=== PATIENT | female | born 1950 | race Caucasian/White ===

== ENCOUNTER 2018-04-07 06:40 | Day surgery (SDC) | payer MEDICARE, OTHER ==
[~2018-04-07] VITALS: Ht 165.1 cm; Wt 111.0 kg
[~2018-04-07 06:40] MED LIST: ALBU8.5H8 IH; AMIT25TA9 PO; BENZ-51 PO; CLOT15C; FLUT16H NASAL; FOLI1TAB15 PO; GABA-531 PO; GLIP5TAB11 PO; HYDR200T83 PO; LIDOP TD; MESA800T PO; METH2.5T6 PO; METH750T3 PO; MILN12.5 PO; MONT10TA21 PO; OXYC5CAP19 PO; PRED10 PO; PRED5TAB PO; SODIUM CHLORIDE 0.9% 1,000 ML IV ONE
[2018-04-07] MEDS ORDERED: EPINEPHrine 1:1,000 [1 MG/ML] AMP SQ ONE (06:41)
[2018-04-07] MEDS ORDERED: LIDOCAINE 2% 30 ML JELLY TP ONE (06:41)
[2018-04-07] MEDS ORDERED: ALBUTEROL SULFATE 2.5 MG/0.5 ML NEB SOLUTION NEB ONE (06:41)
[2018-04-07] MEDS ORDERED: BENZOCAINE 20% 50 MCG/SPRAY 57 GM TP ONE (06:41)
[2018-04-07] MEDS ORDERED: SODIUM CHLORIDE 0.9% 1,000 ML IV ONE (07:11)
[2018-04-07] MEDS ORDERED: CANA100T PO (07:37)
[2018-04-07] MEDS ORDERED: XALA2.5OS OU (07:37)
[2018-04-07] MEDS ORDERED: OXYC5TAB3 PO (07:37)
[2018-04-07] MEDS ORDERED: METF-960 PO (07:37)
[2018-04-07] MEDS ORDERED: CINN500C4 PO (07:37)
[2018-04-07] MEDS ORDERED: DIPH25 PO (07:37)
[2018-04-07] MEDS ORDERED: TURM1TAB PO (07:37)
[2018-04-07] MEDS ORDERED: OXYC10 PO (07:37)
[2018-04-07] MEDS ORDERED: BIOT5000 PO (07:37)
[2018-04-07] MEDS ORDERED: INSNOV SQ (07:37)
[2018-04-07] MEDS ORDERED: LORA10TA7 PO (07:37)
[2018-04-07] MEDS ORDERED: KELP150T PO (07:37)
[2018-04-07] MEDS ORDERED: INSU100V37 SQ (07:37)
[2018-04-07] MEDS ORDERED: ALBU8HFA PO (07:37)
[2018-04-07] MEDS ORDERED: MIDAZOLAM HCL 2 MG/2 ML VIAL ONE (08:01)
[2018-04-07] MEDS ORDERED: FentaNYL CITRATE-PF 100 MCG/2 ML VIAL ONE (08:01)
[2018-04-07] MEDS ORDERED: MethylPREDNISolone SOD SUCC 125 MG/2 ML VIAL IVP ONE (09:00)
[2018-04-07] MEDS ORDERED: MethylPREDNISolone SOD SUCC 125 MG/2 ML VIAL ONE (09:02)
[2018-04-07 10:48] LABS: GLUCOMETER DEV NAME(LOC) SDS.; GLUCOSE,POINT OF CARE 81 MG/DL (70-110)
[2018-04-07] MEDS ORDERED: OXYGEN THERAPY IH SCH (20:00)
== END 2018-04-07 10:20 | disposition home or self-care (01) ==
LOC: SURGERY 06:40
PROVIDERS: ATTEND Internal Medicine Critical Care Medicine
DX: J38.4 Edema of larynx (principal); B37.0 Candidal stomatitis; J84.111 Idiopathic interstitial pneumonia, not otherwise specified; J98.09 Other diseases of bronchus, not elsewhere classified; J98.8 Other specified respiratory disorders; F10.21 Alcohol dependence, in remission; J44.9 Chronic obstructive pulmonary disease, unspecified; M19.90 Unspecified osteoarthritis, unspecified site; B39.9 Histoplasmosis, unspecified; K50.90 Crohn's disease, unspecified, without complications; E11.9 Type 2 diabetes mellitus without complications; M54.30 Sciatica, unspecified side; F11.10 Opioid abuse, uncomplicated; Z87.39 Personal history of other diseases of the musculoskeletal system and connective tissue; Z87.442 Personal history of urinary calculi; Z91.81 History of falling; Z90.49 Acquired absence of other specified parts of digestive tract; Z79.891 Long term (current) use of opiate analgesic; Z79.84 Long term (current) use of oral hypoglycemic drugs; Z79.4 Long term (current) use of insulin; Z88.2 Allergy status to sulfonamides; Z88.1 Allergy status to other antibiotic agents; Z88.5 Allergy status to narcotic agent; Z88.6 Allergy status to analgesic agent; Z88.8 Allergy status to other drugs, medicaments and biological substances; Z79.899 Other long term (current) drug therapy; Z98.890 Other specified postprocedural states
CPT/HCPCS: 31623; 31624; 71045; 82962; 87015; 87070; 87205; 87206; 87220; 88108; 88312; J0171; J2250; J2930; J3010; J7030

== ENCOUNTER 2021-04-17 06:27 | Day surgery (SDC) | payer OTHER ==
[~2021-04-17] VITALS: Ht 167.6 cm; Wt 111.3 kg
[~2021-04-17 06:27] MED LIST changes: +ALBU8HFA PO; +AMIT25TA10 PO; -AMIT25TA9 PO; -BENZ-51 PO; +BIOT5000 PO; +CANA100T PO; +CINN500C4 PO; -CLOT15C; +CLOT15CR29; +DIPH25 PO; -GABA-531 PO; -GLIP5TAB11 PO; -HYDR200T83 PO; +INSNOV SQ; +INSU100V37 SQ; +KELP150T PO; -LIDOP TD; +LORA10TA7 PO; -MESA800T PO; +METF-1211 PO; +METH-812 PO; -METH2.5T6 PO; -METH750T3 PO; -MILN12.5 PO; +MONT-35 PO; -MONT10TA21 PO; +OXYC10TA59 PO; -OXYC5CAP19 PO; +OXYC5TAB3 PO; -PRED5TAB PO; -SODIUM CHLORIDE 0.9% 1,000 ML IV ONE; +TURM1TAB PO; +XALA2.5OS OU
[2021-04-17] MEDS ORDERED: LIDOCAINE 2% 30 ML JELLY TP ONE (06:28)
[2021-04-17] MEDS ORDERED: BENZOCAINE 20% 50 MCG/SPRAY 57 GM TP ONE (06:28)
[2021-04-17] MEDS ORDERED: ALBUTEROL SULFATE 2.5 MG/0.5 ML NEB SOLUTION NEB ONE (06:28)
[2021-04-17] MEDS ORDERED: SODIUM CHLORIDE 0.9% 1,000 ML IV ONE (06:45)
[2021-04-17 07:55] LABS: GLUCOMETER DEV NAME(LOC) SDS.; GLUCOSE,POINT OF CARE 130 MG/DL (70-110)
[2021-04-17 07:59] LABS: COVID AG,FIA SOURCE NASOPHARYNGEAL
[2021-04-17] MEDS ORDERED: FentaNYL CITRATE PF 100 MCG/2 ML VIAL ONE (08:08)
[2021-04-17] MEDS ORDERED: MIDAZOLAM HCL 5 MG/ML VIAL ONE (08:09)
[2021-04-17] MEDS ORDERED: MethylPREDNISolone SOD SUCC 125 MG/2 ML VIAL IVP ONE (09:00)
[2021-04-17] MEDS ORDERED: MethylPREDNISolone SOD SUCC 125 MG/2 ML VIAL ONE (09:49)
[2021-04-17] MEDS ORDERED: OXYGEN THERAPY IH SCH (20:00)
== END 2021-04-17 11:10 | disposition home or self-care (01) ==
LOC: SURGERY 06:27
PROVIDERS: ATTEND Internal Medicine Critical Care Medicine
DX: R05.3 Chronic cough (principal); R06.2 Wheezing; R49.0 Dysphonia; J44.9 Chronic obstructive pulmonary disease, unspecified; Z79.84 Long term (current) use of oral hypoglycemic drugs; Z79.899 Other long term (current) drug therapy
CPT/HCPCS: 31623; 31624; 71045; 82962; 87070; 87101; 87206; 87220; 87426; 88184; 88185; C9803; J2250; J2930; J3010; 87015; 88112; 88312; J7613

== ENCOUNTER 2024-09-14 06:29 | Day surgery (SDC) | payer OTHER ==
[~2024-09-14] VITALS: Ht 160 cm; Wt 102.7 kg
[~2024-09-14 06:29] MED LIST changes: -AMIT25TA10 PO; +AMIT25TA22 PO; +DIPH-1243 PO; -DIPH25 PO; -FLUT16H NASAL; +FLUT16SP NASAL; +PRED-729 PO; -PRED10 PO
[2024-09-14] MEDS ORDERED: LISI-893 PO (07:43)
[2024-09-14] MEDS ORDERED: BUDE10.26 IH (07:43)
[2024-09-14] MEDS ORDERED: AMLO-257 PO (07:43)
[2024-09-14] MEDS ORDERED: DOXY-354 PO (07:53)
[2024-09-14] MEDS ORDERED: FLUT12AE3 IH (07:53)
[2024-09-14] MEDS ORDERED: METO-296 PO (07:53)
[2024-09-14] MEDS ORDERED: FAMO20 PO (07:53)
[2024-09-14] MEDS ORDERED: FLUO15CR41 TP (07:53)
[2024-09-14] MEDS ORDERED: TRIA15CR49 TP (07:53)
[2024-09-14] MEDS ORDERED: MIDAZOLAM HCL 2 MG/2 ML VIAL ONE (07:54)
[2024-09-14] MEDS ORDERED: FentaNYL CITRATE PF 100 MCG/2 ML VIAL ONE (07:54)
[2024-09-14] MEDS: SODIUM CHLORIDE 0.9% 1,000 ML IV ONE (08:04)
[2024-09-14 08:16] LABS: GLUCOMETER DEV NAME(LOC) SDS.; GLUCOSE,POINT OF CARE 172 MG/DL (70-110)
[2024-09-14 09:08] VITALS: PULSE 70; RESP 12; O2SAT 100
[2024-09-14] MEDS ORDERED: MethylPREDNISolone SOD SUCC 125 MG/2 ML VIAL ONE (09:40)
[2024-09-14] MEDS: MethylPREDNISolone SOD SUCC 125 MG/2 ML VIAL IVP ONE (10:00)
[2024-09-14] MEDS ORDERED: ALBUTEROL SULFATE 2.5 MG/0.5 ML NEB SOLUTION NEB ONE (18:00)
[2024-09-14] MEDS ORDERED: BENZOCAINE 20% 50 MCG/SPRAY 57 GM ONE (18:00)
[2024-09-14] MEDS ORDERED: LIDOCAINE 2% 11 ML JELLY ONE (18:00)
[2024-09-14] MEDS ORDERED: LIDOCAINE 4% 50 ML SOLUTION ONE (18:00)
== END 2024-09-14 12:30 | disposition home or self-care (01) ==
LOC: SURGERY 06:29
PROVIDERS: ATTEND Internal Medicine Critical Care Medicine
DX: R05.3 Chronic cough (principal); J38.4 Edema of larynx; B37.0 Candidal stomatitis; J44.9 Chronic obstructive pulmonary disease, unspecified; Z79.899 Other long term (current) drug therapy; Z87.442 Personal history of urinary calculi
CPT/HCPCS: 31623; 82962; 87206; 87101; 87220; 87070; 31624; 94640; 71045; 87015; J3010; J2250; J2919; J7613; Z7610